=== PATIENT | female | born 2000 | race African-American/Black ===

== ENCOUNTER 2024-01-17 03:01 | Emergency (ER) | payer OTHER, SELFPAY ==
--- NOTE | ~2024-01-17 | XR_ITS ---
Cervical Spine: AP, lateral, open-mouth views Clinical History: Pain Findings: There is reversal of the normal cervical lordosis. The vertebral bodies and posterior [place] ents appear intact. The intervertebral disc spaces are well maintained. Pre-vertebral soft tissues a re unremarkable. Impression: Reversal of the normal cervical lordosis, otherwise unremarkable exam. Reviewed, dictated and finalized at location . Impression: Reversal of the normal cervical lordosis, otherwise unremarkable exam.
[2024-01-17 03:04] VITALS: BP 120/84; PULSE 86; RESP 18; TEMP 36.1; O2SAT 100
--- NOTE | 2024-01-17 03:44 | ED.GENADULT ---
HPI - General Adult General Chief complaint: Neck Pain/Injury Stated complaint: fell, hit head, neck pain Time Seen by Provider: 01/17/24 03:21 History of Present Illness HPI narrative: patient 23 old female presents emergency department chief complaint of left-sided neck pain. The patient reports that she tripped over her phone charging cord and hit the ground. The patient reports no loss of consciousness denies nausea or vomiting reports that she has pain in the left lateral neck the patient denies numbness or tingling reports no weakness in her arms or legs denies bowel or bladder dysfunction Related Data Allergies Allergy/AdvReac Type Severity Reaction Status Date / Time No Known Allergies Allergy Verified 01/17/24 03:02 Review of Systems Review of Systems: A 10 system review of systems was completed on the patient and is negative except for what is stated in the HPI. Nursing and ancillary documentation was reviewed. Exam Narrative: GENERAL: Well-appearing, well-nourished, and in no acute distress. HEAD: Normocephalic, atraumatic. EYES: PERRLA and EOMI. ENT: Nares clear, no rhinorrhea or epistaxis. Mucous membranes moist. NECK: Supple. mild tenderness to palpation on the paraspinous muscles on the left side of the neck CHEST: Clear to auscultation. No respiratory distress. HEART: Regular rate and rhythm. No murmur heard. Normal peripheral pulses. ABDOMEN: Soft, nontender, nondistended, normal active bowel sounds. EXTREMITIES: Normal range of motion. No edema. SKIN: Warm, dry, no rash. NEURO: No focal deficits. Alert and oriented x3. PSYCH: Normal mood and affect. Course Vital Signs Vital signs: Vital Signs Temperature 36.1 C L 01/17/24 03:04 Pulse Rate 86 01/17/24 03:04 Respiratory Rate 18 01/17/24 03:04 Blood Pressure 120/84 01/17/24 03:04 Pulse Oximetry 100 01/17/24 03:04 Oxygen Delivery Room Air 01/17/24 03:04 Temperature 36.1 C L 01/17/24 03:04 Pulse Rate 86 01/17/24 03:04 Respiratory Rate 18 01/17/24 03:04 Blood Pressure 120/84 01/17/24 03:04 Pulse Oximetry 100 01/17/24 03:04 Oxygen Delivery Room Air 01/17/24 03:04 Medical Decision Making [facility] Narrative Medical decision making narrative: differential diagnosis includes cervical spine fracture, head injury plain film x-rays of the cervical spine showed no evidence of fracture patient is alert oriented GCS 15 showing no signs of acute head injury the patient this time does not have indications for helical imaging of the head Vital Signs Vital Signs: Vital Signs Temperature 36.1 C L 01/17/24 03:04 Pulse Rate 86 01/17/24 03:04 Respiratory Rate 18 01/17/24 03:04 Blood Pressure 120/84 01/17/24 03:04 Pulse Oximetry 100 01/17/24 03:04 Oxygen Delivery Room Air 01/17/24 03:04 Temperature 36.1 C L 01/17/24 03:04 Pulse Rate 86 01/17/24 03:04 Respiratory Rate 18 01/17/24 03:04 Blood Pressure 120/84 01/17/24 03:04 Pulse Oximetry 100 01/17/24 03:04 Oxygen Delivery Room Air 01/17/24 03:04 Discharge Plan Discharge Clinical Impression: Ground-level fall, Cervical strain Patient Disposition: Home, Self-Care Condition: Stable Instructions: Antibiotic Form, Cervical Strain (ED), Fall Prevention (ED) Follow-up/Referrals: PHYSICIAN,RESIDENT PHYSICIAN [Primary Care Provider] - Екатерина Waterman DO [Physician] - Time of Disposition: 04:06
[2024-01-17 04:18] VITALS: BP 118/62; PULSE 73; RESP 16; O2SAT 100
== END 2024-01-17 04:19 | disposition home or self-care (01) ==
PROVIDERS: Emergency Provider Emergency Medicine
DX: S16.1XXA Strain of muscle, fascia and tendon at neck level, initial encounter (principal); W01.0XXA Fall on same level from slipping, tripping and stumbling without subsequent striking against object, initial encounter
CPT/HCPCS: 72040; 99283